=== PATIENT | female | born 1930 | race Caucasian/White ===

== ENCOUNTER 2016-06-26 22:05 | Inpatient (IN) | payer OTHER ==
[~2016-06-26] VITALS: Ht 165.1 cm; Wt 44.5 kg
[~2016-06-26 22:05] MED LIST: ACCUNEB0.63 MG/3 IH; BENAZEPRIL-HCTZ; COREG6.25 M1 PO; PRILOSEC; PRILOSEC20 MG PO; SINGULAIR10 MG PO; SYMBICORT60 INHALA1 IH
[2016-06-26 23:07] LABS: HEMATOCRIT 34.5 % (36.0-46.0); MCH 33.4 PG (29.0-34.0); MCHC 33.9 G/DL (30.0-36.0); MCV 98.6 FL (83-99); MEAN PLAT.VOLUME 9.9 uM^3 (9.5-12.4); PLATELET COUNT 183 K/uL (156-360); RBC DIS.WIDTH-CV 13.9 % (11.8-14.6); RBC DIS.WIDTH-SD 49.8 % (39-53); WHITE BLOOD COUNT 6.1 K/uL (4.1-10.2)
[2016-06-26 23:17] LABS: CHLORIDE 99 mEq/L (99-109); POTASSIUM 3.9 mEq/L (3.7-5.4)
[2016-06-26 23:18] LABS: SODIUM 136 mEq/L (136-147)
[2016-06-26 23:20] LABS: GLUCOSE 86 mg/dL (70-99); INTER. NORMALIZED RATIO 1.2; PROTHROMBIN TIME 12.4 (9.2-11.2); PTT 26.9 (25-32)
[2016-06-26 23:21] LABS: ANION GAP 10 MEQ/L (2-14)
[2016-06-26 23:22] LABS: TOTAL BILIRUBIN 1.7 mg/dL (0.0-1.0)
[2016-06-26 23:23] LABS: ALKALINE PHOSPHATASE 46 IU/L (3-129); GFR ESTIMATE (CALCULATED) 41 mL/min/
[2016-06-26 23:25] LABS: UREA NITROGEN (BUN) 32 mg/dL (9-23)
[2016-06-27] MEDS ORDERED: FUROSEMIDE40 MG PO (01:36)
[2016-06-27] MEDS ORDERED: LOMOTIL TABLET1 EACH PO (01:36)
[2016-06-27] MEDS ORDERED: ANTIVERT12.5 MG PO (01:36)
[2016-06-27] MEDS ORDERED: LO-DOSE ASPIRIN81 M2 PO (01:36)
[2016-06-27 07:52] LABS: ADD MIUA? YES; BILIRUBIN NEGATIVE; BLOOD NEGATIVE; COLOR YELLOW ((YELLOW)); GLUCOSE (STRIP) NEGATIVE; KETONES NEGATIVE; LEUKOCYTES TRACE; NITRITE NEGATIVE; PROTEIN (STRIP) NEGATIVE; SPECIFIC GRAVITY 1.011 (1.000-1.030)
[2016-06-27 08:26] LABS: EPITHELIAL CELLS 1+ /HPF; MUCUS 1+ /LPF; RED BLOOD CELLS NONE SEEN /HPF (0-5); WHITE BLOOD CELLS RARE /HPF (0-5)
[2016-06-27 08:27] LABS: BACTERIA 3+ /HPF; UCUL ADDED? NO
[2016-06-27 09:45] LABS: CHLORIDE 101 mEq/L (99-109); POTASSIUM 4.5 mEq/L (3.7-5.4); SODIUM 136 mEq/L (136-147)
[2016-06-27 09:47] LABS: GLUCOSE 108 mg/dL (70-99)
[2016-06-27 09:49] LABS: ANION GAP 6 MEQ/L (2-14)
[2016-06-27 09:51] LABS: GFR ESTIMATE (CALCULATED) 50 mL/min/
[2016-06-27 09:52] LABS: UREA NITROGEN (BUN) 31 mg/dL (9-23)
[2016-06-27 16:40] VITALS: BP 147/70
[2016-06-27 20:10] VITALS: BP 133/67
[2016-06-28 00:44] VITALS: BP 97/58
[2016-06-28 05:05] VITALS: BP 100/60
[2016-06-28 08:10] VITALS: BP 123/67
[2016-06-28 11:15] VITALS: BP 98/69
[2016-06-28 15:33] VITALS: BP 103/61
[2016-06-28 21:05] VITALS: BP 117/77
[2016-06-29] VITALS (7 sets, daily range): BP systolic 112–126; BP diastolic 62–80
[2016-06-29 05:56] LABS: HEMATOCRIT 32.2 % (36.0-46.0); MCH 32.9 PG (29.0-34.0); MCHC 32.9 G/DL (30.0-36.0); MEAN PLAT.VOLUME 9.8 uM^3 (9.5-12.4); PLATELET COUNT 198 K/uL (156-360); RBC DIS.WIDTH-CV 14.4 % (11.8-14.6); RBC DIS.WIDTH-SD 52.2 % (39-53); RED BLOOD COUNT 3.22 M/uL (3.80-5.20); WHITE BLOOD COUNT 5.2 K/uL (4.1-10.2)
[2016-06-29 06:26] LABS: ABS NEUTROPHIL COUNT 3.8; ATYPICAL LYMPHOCYTE 1.8 %; BASOPHILS 0.9 %; EOSINOPHIL ABS CT 0; INSTRUMENT ABS NEUTROPHIL CT 2.3 K/uL; LYMPHOCYTES 15.9 % (15.0-45.0); SEG.NEUTROPHILS 73.4 % (46.0-76.0)
[2016-06-29 06:28] LABS: ANION GAP 7 MEQ/L (2-14); CHLORIDE 101 MEQ/L (99-109); GFR ESTIMATE (CALCULATED) 56 mL/min/; POTASSIUM 4.2 MEQ/L (3.7-5.4); SAMPLE HEMOLYSIS CHECK 0; SAMPLE ICTERIC CHECK 0; SAMPLE LIPEMIA CHECK 0; UREA NITROGEN (BUN) 21 mg/dL (9-23)
[2016-06-29 06:38] LABS: GLUCOSE 72 mg/dL (70-99); SODIUM 143 MEQ/L (136-147)
[2016-06-30] VITALS (8 sets, daily range): BP systolic 121–150; BP diastolic 64–93
[2016-06-30 06:25] LABS: HEMATOCRIT 30.6 % (36.0-46.0); MCH 33.1 PG (29.0-34.0); MCV 100.3 FL (83-99); MEAN PLAT.VOLUME 9.3 uM^3 (9.5-12.4); PLATELET COUNT 166 K/uL (156-360); RBC DIS.WIDTH-CV 14.1 % (11.8-14.6); RBC DIS.WIDTH-SD 51.5 % (39-53); RED BLOOD COUNT 3.05 M/uL (3.80-5.20)
[2016-06-30 06:48] LABS: ANION GAP 5 MEQ/L (2-14); CHLORIDE 102 MEQ/L (99-109); GFR ESTIMATE (CALCULATED) > 59 mL/min/; GLUCOSE 82 mg/dL (70-99); SAMPLE HEMOLYSIS CHECK 0; SAMPLE ICTERIC CHECK 0; SAMPLE LIPEMIA CHECK 0; SODIUM 141 MEQ/L (136-147); UREA NITROGEN (BUN) 19 mg/dL (9-23)
[2016-06-30 06:49] LABS: POTASSIUM 3.2 MEQ/L (3.7-5.4)
[2016-06-30 20:02] LABS: C DIFF TOXIN NEGATIVE (NEGATIVE)
[2016-06-30 20:05] LABS: PROBE CHECK PASS; SPECIMEN PROCESSING CONTROL PASS
[2016-07-01 03:00] VITALS: BP 127/64
[2016-07-01 05:55] LABS: HEMATOCRIT 31.3 % (36.0-46.0); MCH 33.4 PG (29.0-34.0); MCHC 32.6 G/DL (30.0-36.0); MCV 102.6 FL (83-99); MEAN PLAT.VOLUME 9.5 uM^3 (9.5-12.4); PLATELET COUNT 173 K/uL (156-360); RBC DIS.WIDTH-CV 14.5 % (11.8-14.6); RBC DIS.WIDTH-SD 54.5 % (39-53); RED BLOOD COUNT 3.05 M/uL (3.80-5.20); WHITE BLOOD COUNT 4.5 K/uL (4.1-10.2)
[2016-07-01 06:36] LABS: ANION GAP 3 MEQ/L (2-14); CHLORIDE 104 MEQ/L (99-109); GFR ESTIMATE (CALCULATED) > 59 mL/min/; GLUCOSE 73 mg/dL (70-99); SAMPLE HEMOLYSIS CHECK 0; SAMPLE ICTERIC CHECK 0; SAMPLE LIPEMIA CHECK 0; SODIUM 140 MEQ/L (136-147); UREA NITROGEN (BUN) 18 mg/dL (9-23)
[2016-07-01 06:39] LABS: POTASSIUM 5.4 MEQ/L (3.7-5.4)
[2016-07-01 08:58] VITALS: BP 126/77
[2016-07-01 11:06] VITALS: BP 117/71
== END 2016-07-01 14:32 | DRG 291 ==
LOC: EME → EDBD 22:05 → 4EAST 06-27 01:56 → EDOF 06-27 01:56 → 4EAST 06-27 15:29
PROVIDERS: Emergency Medicine; Hospitalist; Internal Medicine; Nurse Practitioner Family; Physician Assistant Medical
DX: I50.31 Acute diastolic (congestive) heart failure (principal); E43 Unspecified severe protein-calorie malnutrition; R64 Cachexia; N17.9 Acute kidney failure, unspecified; L89.322 Pressure ulcer of left buttock, stage 2; L89.312 Pressure ulcer of right buttock, stage 2; S81.801A Unspecified open wound, right lower leg, initial encounter; S81.802A Unspecified open wound, left lower leg, initial encounter; S91.302A Unspecified open wound, left foot, initial encounter; I05.8 Other rheumatic mitral valve diseases; Z68.1 Body mass index [BMI] 19.9 or less, adult; I27.2 Other secondary pulmonary hypertension; I48.0 Paroxysmal atrial fibrillation; M81.0 Age-related osteoporosis without current pathological fracture; I10 Essential (primary) hypertension; E78.5 Hyperlipidemia, unspecified; K21.9 Gastro-esophageal reflux disease without esophagitis; E87.6 Hypokalemia; R26.81 Unsteadiness on feet; R91.8 Other nonspecific abnormal finding of lung field; Z90.49 Acquired absence of other specified parts of digestive tract; Z77.22 Contact with and (suspected) exposure to environmental tobacco smoke (acute) (chronic); Z86.010 Personal history of colon polyps
CPT/HCPCS: 71010; 80048; 80053; 81003; 83735; 83880; 85025; 85027; 85610; 85730; 87493; 93005; 93306; 97530 GP; 99281; 99285; J1644; J1940

== ENCOUNTER 2016-08-15 00:52 | Emergency (ER) | payer OTHER ==
[~2016-08-15] VITALS: Ht 165.1 cm; Wt 41.0 kg
[~2016-08-15 00:52] MED LIST changes: +ANTIVERT12.5 MG PO; +FUROSEMIDE40 MG PO; +LO-DOSE ASPIRIN81 M2 PO; +LOMOTIL TABLET1 EACH PO
[2016-08-15] MEDS ORDERED: LOMOTIL TABLET1 EACH PO (01:53)
[2016-08-15] MEDS ORDERED: LASIX40 MG PO (01:54)
[2016-08-15] MEDS ORDERED: KLOR-CON M2020 MEQ PO (01:54)
[2016-08-15] MEDS ORDERED: VITAMIN D31000 UNI2 PO (01:55)
[2016-08-15] MEDS ORDERED: CALCIUM 600 MG1 EACH PO (01:55)
[2016-08-15] MEDS ORDERED: COMPAZINE10 MG PO (01:55)
[2016-08-15 02:17] LABS: HEMATOCRIT 36.4 % (36.0-46.0); MCH 33.8 PG (29.0-34.0); MCHC 34.1 G/DL (30.0-36.0); MCV 99.2 FL (83-99); MEAN PLAT.VOLUME 9.5 uM^3 (9.5-12.4); RBC DIS.WIDTH-CV 12.7 % (11.8-14.6); RBC DIS.WIDTH-SD 45.9 % (39-53); RED BLOOD COUNT 3.67 M/uL (3.80-5.20); WHITE BLOOD COUNT 4.6 K/uL (4.1-10.2)
[2016-08-15] MEDS ORDERED: PHENERGAN25 MG PR (02:23)
[2016-08-15 02:37] LABS: PLATELET COUNT 128 K/uL (156-360)
[2016-08-15 02:38] LABS: CHLORIDE 100 mEq/L (99-109); POTASSIUM 4.2 mEq/L (3.7-5.4); SODIUM 134 mEq/L (136-147)
[2016-08-15 02:40] LABS: GLUCOSE 100 mg/dL (70-99)
[2016-08-15 02:41] LABS: ANION GAP 10 MEQ/L (2-14)
[2016-08-15 02:43] LABS: GFR ESTIMATE (CALCULATED) > 59 mL/min/
[2016-08-15 02:44] LABS: UREA NITROGEN (BUN) 18 mg/dL (9-23)
[2016-08-15 05:31] VITALS: BP 133/70
== END 2016-08-15 05:32 | disposition hospice, home (50) ==
LOC: EME → EDBD 00:52 → EME 00:52
PROVIDERS: Emergency Medicine
DX: E86.0 Dehydration (principal); R11.2 Nausea with vomiting, unspecified; Z66 Do not resuscitate; J45.909 Unspecified asthma, uncomplicated; J44.9 Chronic obstructive pulmonary disease, unspecified; I10 Essential (primary) hypertension; K21.9 Gastro-esophageal reflux disease without esophagitis
CPT/HCPCS: 80048; 85027; 99281; 99283; J2270; J2405; J7030